=== PATIENT | male | born 1980 | race Caucasian/White ===

== ENCOUNTER 2021-01-24 11:41 | Emergency (ER) | payer OTHER ==
[2021-01-24 12:09] VITALS: BP 115/74
--- NOTE | 2021-01-24 12:31 | ED Physician Documentation ---
PD HPI LOWER EXT INJURY - Stated complaint Stated Complaint: LT FOOT PX - Chief complaint Chief Complaint: Ext Problem - History obtained from History obtained from: Patient - History of Present Illness PD HPI LOW EXT INJURY LOCATION: Left, Toe (4th toe) Type of injury: Blunt / blow (he struck toe into furniture and has pain and swelling at end of the toe.) Where injury occurred: Home Timing - details: Abrupt onset, Still present Associated symptoms: Swelling. No: Weakness, Numbness Review of Systems Skin: denies: Abrasion (s), Laceration (s) Neurologic: denies: Focal weakness, Numbness PD PAST MEDICAL HISTORY - Past Medical History Musculoskeletal: None - Allergies Allergies/Adverse Reactions: Allergies Allergy/AdvReac Type Severity Reaction Status Date / Time ketorolac [From Toradol] AdvReac Mild Unknown Verified 01/24/21 12:10 PD ED PE NORMAL - Vitals Vital signs reviewed: Yes - General General: Alert and oriented X 3, No acute distress, Well developed/nourished - Derm Derm: Normal color, Warm and dry - Extremities Extremities: Other (left 4th toe with tenderness at DIP joint and distal phalanx. No disruption of nailbed. ) - Neuro Neuro: No motor deficit, No sensory deficit Results - Vitals Vitals: Oxygen O2 Source Room air - Rads (name of study) toes Radiology: Prelim report reviewed (distal phalanx base fracture nondisplaced. ), See rad report PD MEDICAL DECISION MAKING - ED course Complexity details: reviewed results, considered differential, d/w patient Departure - Departure Disposition: 01 Home, Self Care Clinical Impression: Toe fracture Qualifiers: Encounter type: initial encounter Toe: lesser toe Fracture type: closed Phalanx: distal Fracture alignment: nondisplaced Laterality: left Qualified Code(s): S92.535A - Nondisplaced fracture of distal phalanx of left lesser toe(s), initial encounter for closed fracture Condition: Stable Record reviewed to determine appropriate education?: Yes Instructions: ED Fx Toe Closed Follow-Up: JHON MCCABE MD [Primary Care Provider] - Comments: Thomas tape to help support the toe. Decreased activity over the next several days or so just to reduce the discomfort. Progress activity as tolerated. This will take about 3 to 4 weeks to heal up. Mostly supporting the toe as its healing and decreased activity based on comfort is the treatment. Tylenol or ibuprofen if needed for pains. Forms: Activity restrictions Discharge Date/Time: 01/24/21 13:26
--- NOTE | 2021-01-24 12:54 | XRAY Report ---
PROCEDURE: Toe(s) LT INDICATIONS: Trauma, kicked a toy, now with pain TECHNIQUE: AP view of the left foot and 2 views of the left fourth digit. COMPARISON: None FINDINGS: Mildly displaced fracture of the fourth distal phalanx which extends into the distal interphalangeal joint. Remaining bones are intact. No acute soft tissue findings. IMPRESSION: Mildly displaced fourth distal phalanx fracture extending into the distal interphalangeal joint. Reviewed by: Elieser Hardy MD on 01/24/2021 12:52 PM PDT Approved by: Elieser Hardy MD on 01/24/2021 12:52 PM PDT Station ID: [id number]
== END 2021-01-24 13:26 | disposition home or self-care (01) ==
LOC: ED 11:41
DX: S92.532A Displaced fracture of distal phalanx of left lesser toe(s), initial encounter for closed fracture (principal); W22.8XXA Striking against or struck by other objects, initial encounter
CPT/HCPCS: 73660; 99283

== ENCOUNTER 2022-03-07 15:03 | Emergency (ER) | payer OTHER ==
--- NOTE | 2022-03-07 15:57 | ED Physician Documentation ---
PD HPI ABD PAIN - Stated complaint Stated Complaint: MALE GI/ABD PX - Chief complaint Chief Complaint: Abd Pain - History obtained from History obtained from: Patient - Additional information Additional information: He developed a painful rash near the right lower lid margin a few days [place] prescribed mupirocin and Valtrex. He picked up the prescription yesterday morning and started both around noon and then half an hour later had a 20-minute episode of bilateral flank pain radiating down to both testicles and feeling like his testicles were not wanted to go up into his body. He has not had pain in over 24 hours. He was sent here from the walk-in clinic for concern for the above. He feels fine now. Review of Systems Constitutional: reports: Reviewed and negative Ears: reports: Reviewed and negative Nose: reports: Reviewed and negative Throat: reports: Reviewed and negative PD PAST MEDICAL HISTORY - Past Medical History Musculoskeletal: None - Present Medications Home Medications: Ambulatory Orders Medication Instructions Recorded Confirmed Acyclovir [Zovirax] 1 gm TP 5XD #30 gm 03/07/22 Clindamycin Phos/Skin Clnsr 19 1 each TP ONCE PRN 03/07/22 03/07/22 [Clindacin Etz Kit] Clobetasol 0.05% Oint [Temovate 1 applic TOP 03/07/22 0.05% Oint] - Allergies Allergies/Adverse Reactions: Allergies Allergy/AdvReac Type Severity Reaction Status Date / Time pepper (genus Capsicum) Allergy Anaphylaxis Verified 03/07/22 15:47 poison kristina extract Allergy Anaphylaxis Verified 03/07/22 15:47 ketorolac [From Toradol] AdvReac Mild Unknown Verified 01/24/21 12:10 PD ED PE NORMAL - Vitals Vital signs reviewed: Yes - General General: Alert and oriented X 3, No acute distress - HEENT HEENT: Other (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) - Abdomen Abdomen: Normal bowel sounds, Soft, Non tender - Male Male : Other (Normal uncircumcised male genitalia, testes descended and nontender with normal lie and normal cremaster reflexes) - Back Back: No CVA TTP, No spinal TTP - Derm Derm: Normal color, Warm and dry - Extremities Extremities: No edema, No calf tenderness / cord - Neuro Neuro: Alert and oriented X 3, Normal speech Results - Vitals Vitals: Vital Signs - 24 hr 03/07/22 03/07/22 15:41 16:52 Temperature 36.6 C Heart Rate 66 68 Respiratory 20 16 Rate Blood Pressure 147/90 H 126/81 H O2 Saturation 97 100 Oxygen O2 Source Room air - Labs Labs: Laboratory Tests 03/07/22 03/07/22 16:02 16:05 Sodium 139 Potassium 3.7 Chloride 101 Carbon Dioxide 29 Anion Gap 9.0 BUN 16 Creatinine 0.8 Estimated GFR (MDRD) 107 Glucose 105 H Calcium 9.6 Urine Color YELLOW Urine Clarity CLEAR Urine pH 6.0 Ur Specific [place] 1.015 Urine Protein NEGATIVE Urine Glucose (UA) NEGATIVE Urine Ketones NEGATIVE Urine Occult Blood NEGATIVE Urine Nitrite NEGATIVE Urine Bilirubin NEGATIVE Urine Urobilinogen 0.2 (NORMAL) Ur Leukocyte Esterase NEGATIVE Ur Microscopic Review NOT INDICATED Urine Culture Comments NOT INDICATED PD MEDICAL DECISION MAKING - ED course ED course: 41-year-old gentleman with resolved episode of bilateral flank and testicular pain lasting for 20 minutes 24 hours ago but no pain since. He was specifically worried about his kidney function given what he read on the mupirocin bottle and he has a normal urinalysis and BMP. Departure - Departure Disposition: 01 Home, Self Care Clinical Impression: Flank pain Condition: Good Record reviewed to determine appropriate education?: Yes Instructions: ED Abdominal Pain Unkn Cause Male Prescriptions: Acyclovir [Zovirax] 1 gm TP 5XD #30 gm Comments: No evidence of kidney damage or blood in the urine today. You can stop the valacyclovir and mupirocin for now. Call your doctor to arrange a follow-up appointment, make the next available appointment. In the interim, return anytime if worse or if new symptoms develop. Discharge Date/Time: 03/07/22 16:52
[2022-03-07 16:09] LABS: BILIRUBIN,URINE NEGATIVE (NEGATIVE); GLUCOSE, URINE (UA) NEGATIVE (NEGATIVE); KETONES,URINE (UA) NEGATIVE (NEGATIVE); LEUKOCYTE ESTERASE, URINE NEGATIVE (NEGATIVE); NITRITE,URINE NEGATIVE (NEGATIVE); OCCULT BLOOD,URINE NEGATIVE (NEGATIVE); PROTEIN,URINE NEGATIVE (NEGATIVE); UROBILINOGEN,URINE 0.2 (NORMAL) E.U./dL (NORMAL)
[2022-03-07 16:11] LABS: CLARITY,URINE CLEAR (CLEAR)
[2022-03-07 16:43] LABS: CALCIUM 9.6 mg/dL (8.5-10.3); CREATININE 0.8 mg/dL (0.6-1.2); POTASSIUM 3.7 mmol/L (3.5-5.0)
[2022-03-07 16:53] VITALS: BP 126/81
== END 2022-03-07 16:52 | disposition home or self-care (01) ==
LOC: ED 15:03
DX: R10.9 Unspecified abdominal pain (principal); N50.811 Right testicular pain; N50.812 Left testicular pain; R21 Rash and other nonspecific skin eruption
CPT/HCPCS: 36415; 80048; 81001; 81003; 87086; 99282; 99283

== ENCOUNTER 2023-12-20 16:56 | Emergency (ER) | payer OTHER ==
[2023-12-20 17:15] VITALS: BP 114/77; O2SAT 97
--- NOTE | 2023-12-20 19:37 | ED Physician Documentation ---
History of Present Illness - Stated complaint Stated Complaint: LOWER BACK PX - Chief complaint Chief Complaint: Back Pain - History obtained from History obtained from: Patient - Additonal information Additional information: 43-year-old man with past history of previous low back strains presents with right and mid low back pain after lifting a treadmill today. denies weakness/numbness or Urinary or fecal incontinence or retention. Denies groin numbness PD PAST MEDICAL HISTORY - Past Medical History Past Medical History: No Musculoskeletal: None Derm: Other - Past Surgical History Past Surgical History: No - Present Medications Home Medications: Ambulatory Orders Medication Instructions Recorded Confirmed Acyclovir [Zovirax] 1 gm TP 5XD #30 gm 03/07/22 Clindamycin Phos/Skin Clnsr 19 1 each TP ONCE PRN 03/07/22 03/07/22 [Clindacin Etz Kit] Clobetasol 0.05% Oint [Temovate 1 applic TOP 03/07/22 0.05% Oint] methocarbamoL [Robaxin] 500 mg PO Q6H #20 tablet 12/20/23 - Allergies Allergies/Adverse Reactions: Allergies Allergy/AdvReac Type Severity Reaction Status Date / Time pepper (genus Capsicum) Allergy Anaphylaxis Verified 03/07/22 15:47 poison kristina extract Allergy Anaphylaxis Verified 03/07/22 15:47 ketorolac [From Toradol] AdvReac Mild Unknown Verified 01/24/21 12:10 - Social History Does the pt smoke?: No Smoking Status: Never smoker Does the pt drink ETOH?: Yes Does the pt have substance abuse?: No - Immunizations Immunizations are current?: Yes - POLST Patient has POLST: No PD ED PE NORMAL - Vitals Vital signs reviewed: Yes - General General: Alert and oriented X 3, No acute distress, Well developed/nourished - HEENT HEENT: Atraumatic, PERRL, EOMI - Neck Neck: No bony TTP - Back Back: No spinal TTP, Other (Right lower back discomfort in a muscular distribution) - Derm Derm: Normal color, Warm and dry - Extremities Extremities: No deformity, No tenderness to palpate, Normal ROM s pain, Other (CSM intact bilateral lower extremity) - Neuro Neuro: No motor deficit, No sensory deficit Results - Vitals Vitals: Vital Signs - 24 hr 12/20/23 17:07 Temperature 36.8 C Heart Rate 87 Respiratory 18 Rate Blood Pressure 114/77 O2 Saturation 97 Oxygen O2 Source Room air PD Medical Decision Making - ED course ED course: 43-year-old man presents with right low back pain after injuring it lifting a treadmill. no red flag symptoms for spinal cord issues. Robaxin was provided in the emergency department. Patient denies NSAIDs. Prescription sent to pharmacy return precautions given. Plan to follow-up outpatient with primary care provider. Departure - Departure Disposition: Home, Self Care Clinical Impression: Back pain Condition: Stable Instructions: ED Low Back Pain Injury Prescriptions: methocarbamoL [Robaxin] 500 mg PO Q6H #20 tablet Comments: You were seen in the emergency department for Lower back pain. You should rest, apply ice for 20 minutes every hour, and take ibuprofen 600 mg every 6 hours with food for pain. Prescription sent to [facility]. Please follow-up with your primary care provider and return to the emergency department if you have any new or worsening symptoms or other concerns. Forms: Activity restrictions
[2023-12-20] MEDS: methocarbamoL 500 MG TABLET PO STA (19:48)
== END 2023-12-20 19:58 | disposition home or self-care (01) ==
LOC: ED 16:56
DX: M54.50 Low back pain, unspecified (principal); X50.0XXA Overexertion from strenuous movement or load, initial encounter
CPT/HCPCS: 99283; A9270